=== PATIENT | male | born 1965 | race Caucasian/White ===

== ENCOUNTER 2016-07-24 08:15 | Day surgery (SDC) | payer OTHER ==
[~2016-07-24 08:15] MED LIST: FENTANYL 250 MCG/5 ML AMP IV PRN; LACTATED RINGERS 1,000 ML IV SCH; MIDAZOLAM HCL 5 MG/5 ML VIAL IV PRN
[2016-07-24] MEDS ORDERED: IV START KIT ONE (08:32)
--- NOTE | 2016-07-27 09:50 | SURGPATH ---
[facility] [address] [place] [id number] Patient Name: JAES MCINTOSH MR#: [id number] : 1965 Gender: M Specimen #: [id number] Collected: 07/24/2016 Received: 07/26/2016 Reported: 07/27/2016 Submitting Phys: DELBERT STEVENS Copy To Phys: [facility] PAYAM TABARES Clinical History / Pre-Operative Diagnosis: SURVEILLANCE; rule out ileitis Specimen Source / Surgical Procedure Performed: #1-sigmoid colon polyp at 15 cm; #2-terminal ileum biopsy Interpretation: 1. SIGMOID COLON, POLYP AT 15 CM, BIOPSY: - TUBULAR ADENOMA 2. TERMINAL ILEUM, BIOPSY: - NO PATHOLOGIC DIAGNOSIS Electronically Signed Out Tawanda Rodriguez M.D. Gross Description: #1 The specimen is received in a formalin filled container labeled with the patient's name and "sigmoid colon polyp at 15 cm". A polypoid red-ray biopsy is 1.0 x 0.5 x 0.5 cm. Trisected. Totally embedded in cassette #1. #2 The specimen is received in a formalin filled container labeled with the patient's name and "terminal ileum". Two ray biopsies are 0.4 and 0.5 cm. Totally embedded in cassette #2. Navdeep Jarquin Microscopic Description: 1. Levels reveal colonic mucosa surfaced by tubular glands with focal adenomatous features. High grade dysplasia and malignancy are not present. 2. Levels reveal small intestinal mucosa with a villous architecture and prominent lymphoid aggregates consistent with ileum. Ulceration, acute inflammation, granulomas, dysplasia and malignancy are not present. 1: 21008 2: 92458 D12.5
== END 2016-07-24 11:20 | disposition home or self-care (01) ==
LOC: SDC 08:15
PROVIDERS: ATTEND Internal Medicine Gastroenterology
PROC: 0DBN8ZX Excision of Sigmoid Colon, Via Natural or Artificial Opening Endoscopic, Diagnostic (ICD-10-PCS; principal; 2016-07-24)
DX: Z12.11 Encounter for screening for malignant neoplasm of colon (principal); D12.5 Benign neoplasm of sigmoid colon; K57.30 Diverticulosis of large intestine without perforation or abscess without bleeding; I10 Essential (primary) hypertension; Z72.0 Tobacco use
CPT/HCPCS: 45385; J3010; J2250; J7120